=== PATIENT | female | born 1945 | race Caucasian/White ===

== ENCOUNTER → 2019-08-14 11:02 | Outpatient (CLI) | payer MEDICARE, OTHER, SELFPAY ==
--- NOTE | ~2019-08-14 | XR_ITS ---
EXAMINATION: XR foot LT min 3V EXAM DATE: 08/14/2019 11:47 INDICATION: No known recent injury provided at this time. Pain of the left foot. Osteoarthritis. TECHNIQUE: Left foot dorsoplantar, lateral and oblique projections obtained and reviewed. There is n o prior study for comparison. FINDINGS: Left metatarsal bones unremarkable. Moderate size calcaneal spurs. There is polyarticula r primary osteoarthritis as follows: Mild to moderate first MTP and interphalangeal, otherwise mild p olyarticular. There are no bony erosions identified. There are no acute fractures or dislocations vernon ntified. There is no subcutaneous gas. The soft tissue is unremarkable. There are no radiopaque f oreign bodies. No periosteal reaction or band of sclerosis to suggest subacute stress fracture. IMPRESSION: 1. Polyarticular left foot osteoarthritis. 2. Calcaneal spurs. Reviewed, dictated and finalized at location B. RACTING SUPPORT SPECIALIST
--- NOTE | ~2019-08-14 | XR_ITS ---
EXAMINATION: XR foot RT min 3V EXAM DATE: 08/14/2019 11:46 INDICATION: No known recent injury provided at this time. Pain of the right foot. Osteoarthritis. TECHNIQUE: Right foot dorsoplantar, lateral and oblique projections obtained and reviewed. Compariso n is made to prior examination from 12/18/2015. FINDINGS: Right metatarsal bones unremarkable. There is polyarticular primary osteoarthritis as foll ows: Moderate first MTP, mild to moderate first interphalangeal, otherwise mild scattered right foot. No periosteal reaction or band of sclerosis to suggest subacute stress fracture. There are no bony e rosions identified. Small to moderate-sized calcaneal spurs. Minimal progression in these degenerativ e changes compared to 2016. There are no acute fractures identified. IMPRESSION: 1. Polyarticular right foot osteoarthritis most advanced at the first MTP joint. 2. Calcaneal spurs. Reviewed, dictated and finalized at location B. GER UTILIZATION REVIEW IMPRESSION: 1. Polyarticular right foot osteoarthritis most advanced at the first MTP jeferson nt. 2. Calcaneal spurs.
--- NOTE | ~2019-08-14 | XR_ITS ---
EXAMINATION: XR hip BI 2V w AP pelvis DATE: 08/14/2019 11:46 INDICATION: Osteoarthritis involving multiple joints of both sides of body. TECHNIQUE: An anteroposterior view of the pelvis and 2 views of each hip were obtained. COMPARISON: CT abdomen and pelvis 06/09/2015 FINDINGS: There is lumbar dextroscoliosis and severe spondylosis. No fracture. There is mild osteoart hritis of the hips. There are calcified uterine fibroids. IMPRESSION: 1. Mild osteoarthritis of the hips. Reviewed, dictated and finalized at location A. ENTER MOLD
--- NOTE | ~2019-08-14 | XR_ITS ---
EXAMINATION: XR hand BI arthritis min 3V DATE: 08/14/2019 11:46 INDICATION: Arthralgia of both hands. TECHNIQUE: 4 views of right hand and 4 views of left hand on a total of 7 radiographs were obtained. COMPARISON: None. FINDINGS: RIGHT HAND: Bone alignment is normal. No fracture. There is mild osteoarthritis of first carpometacar pal joint, first, second, third, and fifth metacarpophalangeal joints, second through fifth proximal interphalangeal joints, and third and fourth distal interphalangeal joints. There is severe osteoarth ritis of first interphalangeal joint and fifth distal interphalangeal joint and moderate osteoarthrit is of second distal interphalangeal joint. LEFT HAND: Bone alignment is normal. No fracture. There is moderate osteoarthritis of triscaphe joint , severe osteoarthritis of first carpometacarpal joint, mild osteoarthritis of second and third metac arpophalangeal joints, second, third, and fifth proximal interphalangeal joints, and third distal int erphalangeal joint. There is severe osteoarthritis of fourth proximal interphalangeal joint and moder ate osteoarthritis of first interphalangeal joint and second, fourth, and fifth distal interphalangea l joints. IMPRESSION: 1. Polyarticular osteoarthritis. Reviewed, dictated and finalized at location A. EN TENDER
== END ==
PROVIDERS: PCP Family Medicine; Visit Provider Internal Medicine
DX: M77.32 Calcaneal spur, left foot (principal); M19.072 Primary osteoarthritis, left ankle and foot; M77.31 Calcaneal spur, right foot; M19.071 Primary osteoarthritis, right ankle and foot; M19.041 Primary osteoarthritis, right hand; M19.042 Primary osteoarthritis, left hand; M16.0 Bilateral primary osteoarthritis of hip
CPT/HCPCS: 73130; 73521; 73630

== ENCOUNTER 2021-05-14 11:43 | Outpatient (CLI) | payer MEDICARE, OTHER, SELFPAY ==
--- NOTE | ~2021-05-14 | MM_ITS ---
EXAMINATION: MM diagnostic [facility] BI w jayashree HISTORY: Tiny bump on left nipple TECHNIQUE: ML, MLO and craniocaudal 3-D tomosynthesis images of both breasts were performed and synth [facility] 2-D images were generated. CAD analysis was submitted and interpreted. COMPARISON: 03/16/2018, 08/25/2016, 08/08/2015 bilateral screening mammogram examinations BREAST PARENCHYMAL COMPOSITION: There are scattered areas of fibroglandular density. FINDINGS: Stable bilateral masses are noted, including a lobular mass or contiguous masses measuring up to 13 mm combined maximal density, not significant changed since 08/08/2015. No interval suspicious mass or architectural distortion, malignant constipation, skin thickening or r etraction or significant new or developing density of either breast. IMPRESSION: 1. Stable bilateral breast masses 2. No significant change since 2015 3. A tiny bump on the left nipple was reported, without radiographic correlate; consider surgical con sult and possible biopsy. BI-RADS Category 2: Benign finding(s). Reviewed, dictated and finalized at location A. NO MANAGER IMPRESSION: 1. Stable bilateral breast masses 2. No significant change since 2015 3. A tiny bump on the left nipple was reported, without radiographic correlate; consider surgical consult and possible biopsy. BI-RADS Category 2: Benign finding(s).
== END 2021-05-14 11:44 | disposition home or self-care (01) ==
LOC: ANHIMG 11:45
PROVIDERS: PCP Family Medicine; Visit Provider Obstetrics & Gynecology
DX: N64.89 Other specified disorders of breast (principal)
CPT/HCPCS: 77062; 77066; G0279

== ENCOUNTER → 2022-07-13 14:40 | Outpatient (CLI) | payer MEDICARE, OTHER, SELFPAY ==
--- NOTE | ~2022-07-13 | XR_ITS ---
EXAM: XR shoulder RT min 2V DATE: 07/13/2022 15:07 HISTORY: M12.811 - Other specific arthropathies, not elsewhere cla... . COMPARISON: None available. FINDINGS: Normal mineralization. No fracture or dislocation. No lytic or blastic lesion. Mild AC jeferson nt hypertrophy and glenohumeral osteoarthritis. Calcific deposition in the distal rotator cuff. Acrom ial and humeral head enthesopathy. No erosion or periosteal change. Soft tissues within normal limits . IMPRESSION: Mild degenerative changes in the right shoulder, detailed above. Calcific tendinitis. Reviewed, dictated and finalized at location K. ONAL SALES ENGINEER IMPRESSION: Mild degenerative changes in the right shoulder, detailed above. Ca lcific tendinitis.
== END ==
PROVIDERS: PCP Emergency Medicine; Visit Provider Emergency Medicine
DX: M75.31 Calcific tendinitis of right shoulder (principal); M19.011 Primary osteoarthritis, right shoulder
CPT/HCPCS: 73030

== ENCOUNTER 2024-01-12 10:23 | Outpatient (CLI) | payer MEDICARE, OTHER, SELFPAY ==
--- NOTE | ~2024-01-12 | MM_ITS ---
EXAMINATION: MM screening [facility] BI w jayashree HISTORY: Screening TECHNIQUE: Craniocaudal and mediolateral oblique 3-D tomosynthesis images were obtained and synthetic 2-D images were generated. CAD analysis was submitted and interpreted. COMPARISON: Comparison to multiple prior studies sequentially, with oldest reviewed study dated 05/05. BREAST PARENCHYMAL COMPOSITION: Not dense: There are scattered areas of fibroglandular density. FINDINGS: Stable mass in the upper central aspect of the right breast without significant change from prior studies, presumed to be benign. There is no evidence of suspicious mass, calcification, or arc hitectural distortion to suggest malignancy in either breast. There has been no suspicious interval c hange. IMPRESSION: 1. No mammographic evidence of malignancy. 2. Recommend routine screening mammography in one year. BI-RADS Category 2: Benign finding(s). Reviewed, dictated and finalized at location B.
== END 2024-01-12 10:24 ==
PROVIDERS: PCP Emergency Medicine; Visit Provider Obstetrics & Gynecology
DX: Z12.31 Encounter for screening mammogram for malignant neoplasm of breast (principal)
CPT/HCPCS: 77063; 77067

== ENCOUNTER 2024-04-29 11:11 | Emergency (ER) | payer SELFPAY ==
--- NOTE | ~2024-04-29 | CT_ITS ---
EXAMINATION: CT brain wo con DATE: 04/29/2024 12:14 INDICATION: Head injury. TECHNIQUE: Computed tomography (CT) of the head was performed without intravenous contrast. The mA wa s adjusted according to patient size. Iterative reconstruction technique was employed. The dose-lengt h product was 529.67 mGy-cm. COMPARISON: Head CT 03/03/2012 FINDINGS: There is no intracranial hemorrhage, acute infarction, or abnormal intracranial mass lesion . The ventricles are normal in size. There is mucosal thickening in the paranasal sinuses. There is t hickening and sclerosis of the [place] of right sphenoid sinus, consistent with chronic sinusitis. The orbits are normal. There is a small right mastoid effusion. IMPRESSION: 1. Normal brain. 2. Chronic sinusitis. Reviewed, dictated and finalized at location A.
--- NOTE | ~2024-04-29 | CT_ITS ---
EXAMINATION: CT cervical spine wo con DATE: 04/29/2024 12:15 INDICATION: Neck injury. TECHNIQUE: Computed tomography (CT) of the cervical spine was performed without intravenous contrast. Automated exposure control and iterative reconstruction technique were employed. The dose-length pro duct was 414.25 mGy-cm. COMPARISON: None FINDINGS: There is kyphosis of cervical spine. There is 13 degrees dextroscoliosis of cervicothoracic spine. There is 2 mm anterolisthesis of C7 on T1. Vertebral body heights are normal. There is modera tely decreased disc height at C3-C4 and C4-C5, severely decreased disc height at C5-C6 and C6-C7, and mildly decreased disc height at C7-T1. The following disc levels are specifically discussed: C2-C3: There is no uncovertebral joint osteoarthritis. There is mild right and severe left facet join t osteoarthritis. There is mild left neural foraminal stenosis. There is no central canal stenosis. C3-C4: There is mild right and moderate left uncovertebral joint osteoarthritis. There is severe bila teral facet joint osteoarthritis. There is mild left neural foraminal stenosis. There is mild central canal stenosis. C4-C5: There is severe right and mild left uncovertebral joint osteoarthritis. There is severe right and moderate left facet joint osteoarthritis. There is mild right neural foraminal stenosis. There is mild central canal stenosis. C5-C6: There is severe bilateral uncovertebral joint osteoarthritis. There is moderate bilateral face t joint osteoarthritis. There is mild bilateral neural foraminal stenosis. There is mild central libby l stenosis. C6-C7: There is severe bilateral uncovertebral joint osteoarthritis. There is moderate bilateral face t joint osteoarthritis. There is mild bilateral neural foraminal stenosis. There is mild central libby l stenosis. C7-T1: There is no uncovertebral joint osteoarthritis. There is severe bilateral facet joint osteoart hritis. There is mild left neural foraminal stenosis. There is no central canal stenosis. IMPRESSION: 1. No fracture. 2. Severe cervical spondylosis. Reviewed, dictated and finalized at location A.
[2024-04-29 11:43] VITALS: BP 199/96; PULSE 104; RESP 18; TEMP 36.7; O2SAT 95
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
[2024-04-29 12:54] VITALS: BP 187/90; PULSE 100; RESP 19; TEMP 37.1; O2SAT 95
== END 2024-04-29 12:38 | disposition home or self-care (01) ==
PROVIDERS: Emergency Provider Emergency Medicine; PCP Emergency Medicine
DX: S09.90XA Unspecified injury of head, initial encounter (principal); V89.2XXA Person injured in unspecified motor-vehicle accident, traffic, initial encounter; E11.9 Type 2 diabetes mellitus without complications; I10 Essential (primary) hypertension; E78.5 Hyperlipidemia, unspecified
CPT/HCPCS: 70450; 72125; 99284

== ENCOUNTER 2024-11-29 14:30 | Outpatient (RCR) | payer MEDICARE, OTHER, SELFPAY | END 2025-01-22 11:02 | disposition home or self-care (01) | LOC: ANHDMC 14:30 | PROVIDERS: PCP Emergency Medicine; Visit Provider Emergency Medicine | DX: E11.65 Type 2 diabetes mellitus with hyperglycemia (principal); Z71.89 Other specified counseling | CPT/HCPCS: G0108; G0109 ==

== ENCOUNTER 2025-02-28 14:27 | Outpatient (CLI) | payer MEDICARE, OTHER, SELFPAY ==
--- NOTE | ~2025-02-28 | XR_ITS ---
EXAMINATION: XR foot RT 2V DATE: 02/28/2025 14:43 INDICATION: Right calcaneal/foot pain TECHNIQUE: 2 images of the right foot were obtained COMPARISON: None. FINDINGS: Moderate sized plantar and posterior calcaneal spurs. Moderate degenerative change in the first metatarsophalangeal joint. No fracture. No dislocation. Soft tissue swelling about the right foot. Toes are curled which limits evaluation. IMPRESSION: 1. No fracture. No dislocation. 2. Moderate-sized plantar and posterior calcaneal spurs. 3. Moderate degenerative change in the first metatarsophalangeal joint. If symptoms persist or worsen, consider a short-term follow-up study or additional imaging for further assessment. Reviewed, dictated and finalized at location Q. IMPRESSION: 1. No fracture. No dislocation. 2. Moderate-sized plantar and posterior calcaneal spurs. 3. Moderate degenerative change in the first metatarsophalangeal joint. If symptoms persist or worsen, consider a short-term follow-up study or additio nal imaging for further assessment.
== END 2025-02-28 14:28 | disposition home or self-care (01) ==
LOC: MICIMG 14:30
PROVIDERS: PCP Emergency Medicine; Visit Provider Emergency Medicine
DX: M77.31 Calcaneal spur, right foot (principal); M19.071 Primary osteoarthritis, right ankle and foot
CPT/HCPCS: 73620